=== PATIENT | female | born 1980 | race Caucasian/White ===

== ENCOUNTER 2016-11-27 12:46 | Emergency (ER) | payer OTHER ==
[~2016-11-27] VITALS: Ht 149.9 cm; Wt 104.8 kg
--- NOTE | 2016-11-27 13:12 | EKG ---
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
[2016-11-27 13:52] LABS: BILIRUBIN,URINE NEGATIVE (NEG); GLUCOSE,URINE NEGATIVE (NEG); NITRITE,URINE NEGATIVE (NEG); PROTEIN,URINE NEGATIVE (NEG-TRACE); UROBILINOGEN,URINE 0.2 mg/dL (0.2 mg/dL)
[2016-11-27 13:55] LABS: BARBITURATES NEG (NEG); BENZODIAZEPINES NEG (NEG); CANNABINOIDS NEG (NEG); COCAINE NEG (NEG); METHADONE NEG (NEG); OPIATES NEG (NEG); PHENCYCLIDINE NEG (NEG)
[2016-11-27 13:58] LABS: RBC,URINE 0 /HPF (0-2)
[2016-11-27 13:59] LABS: BACTERIA,URINE FEW /HPF (0-FEW); SQUAMOUS EPITHELIAL CELL,UR MOD /LPF
[2016-11-27 13:59] LABS: BASO # 0.1 x10^3/uL (0.0-0.2); BASO % 1 % (0-3); EOS % 2 % (0-3); HEMATOCRIT 35.6 % (36.0-47.0); HEMOGLOBIN 11.5 g/dL (12.0-15.5); LYMPH # 2.3 x10^3/uL (1.0-4.8); LYMPH % 24 % (24-48); MEAN CORPUSCULAR HEMOGLOBIN 22 pg (25-35); MEAN CORPUSCULAR HGB CONC 32 g/dL (31-37); MEAN CORPUSCULAR VOLUME 69 fL (79-100); MONO % 7 % (0-9); NEUT % 67 % (31-73); PLATELET COUNT 234 x10^3/uL (140-400); RED BLOOD COUNT 5.14 x10^6/uL (3.50-5.40); RED CELL DISTRIBUTION WIDTH 17.9 % (11.5-14.5); WHITE BLOOD COUNT 9.8 x10^3/uL (4.0-11.0)
[2016-11-27 14:00] VITALS: BP 158/83
--- NOTE | 2016-11-27 14:16 | RAD ---
EXAM: CT head without contrast. HISTORY: Hypertension, right upper extremity numbness. TECHNIQUE: Computed tomography of the head was performed without intravenous contrast. COMPARISON: None. FINDINGS: There is a fluid density mass just superior to the left cerebellar focal measuring 2.0 x 1.7 cm. This exerts significant mass effect along the left aspect of the midbrain with rightward displacement of the aqueduct and parenchymal volume loss. There is no intracranial hemorrhage. Sheth-white differentiation is preserved. The ventricles are normal in size and position. The visualized paranasal sinuses appear clear. The orbits are unremarkable. The temporal bones are unremarkable. The calvarium reveals no suspicious lesions. IMPRESSION: 1. A low signal mass just superior to left cerebellar peduncle measures 2.0 cm and exerts significant mass effect along the left aspect of the midbrain with associated midline shift and volume loss. Considerations include an arachnoid cyst, an epidermoid cyst or less likely, a solid lesion. MRI of the brain with/without contrast is recommended for further characterization if the diagnosis is not already known. These findings were called to Dr. Spicer by Janes Boothe on 11/27/2016 at 1405. *One or more of the following individualized dose reduction techniques were utilized for this examination: 1. Automated exposure control. 2. Adjustment of the mA and/or kV according to patient size. 3. Use of iterative reconstruction technique.
[2016-11-27 14:24] LABS: ANISOCYTOSIS SLIGHT; HYPOCHROMIA MOD; PLT ESTIMATE ADEQUATE (ADEQUATE); POIKILOCYTOSIS SLIGHT
[2016-11-27 14:25] LABS: MICROCYTOSIS MOD; OVALOCYTES OCC
[2016-11-27 14:31] LABS: ALBUMIN 3.4 g/dL (3.4-5.0); ALBUMIN/GLOBULIN RATIO 0.8 (1.0-1.7); CALCIUM 8.4 mg/dL (8.5-10.1); CREATININE 0.8 mg/dL (0.6-1.0); GFR 82.1; POTASSIUM 3.4 mmol/L (3.5-5.1); TOTAL BILIRUBIN 0.3 mg/dL (0.2-1.0); TOTAL PROTEIN 7.7 g/dL (6.4-8.2)
--- NOTE | 2016-11-27 14:31 | RAD ---
2 views of the Chest 11/27/2016 3:07 PM Indication: Chest pain Comparison: None Findings: No focal consolidation or infiltrate is identified. No pneumothorax or pleural effusion is seen. Heart size is normal. Bony thorax is grossly intact. Impression: No radiographic evidence of acute cardiopulmonary process.
--- NOTE | 2016-11-27 19:15 | ED.ADGEN ---
Past Medical History Past Medical History: Hypertension, Hypothyroid Additional Past Medical Histor: uncontrolled Past Surgical History: No Surgical History Alcohol Use: None Drug Use: None Adult General Chief Complaint Chief Complaint: HYPERTENSION HPI HPI Patient is a 36 year old woman, history of hypertension, hypothyroidism, who has been off medications for the past year and a half, since her last , who presents to the emergency department with a complaint of persistent numbness in the right upper extremity, with an episode of chest pain or shortness of breath, and right upper extremity and right lower extremity weakness and numbness that occurred last night. Patient denies any similar symptoms previously. She states that she did check her blood pressure at home last night when she is experiencing shortness of breath and a sharp intermittent chest pain in the center of her chest, at that time she was hypertensive, blood pressures of 170s over 100s. Patient states that she attributed her symptoms to her hypertension, states the pain and shortness of breath resolved quickly, did not recur, although the numbness in her upper extremity remained persistent. She states there was tingling which did resolve. States there may been some weakness as well. Patient states that symptoms resolved except for the numbness in her arm, patient then went to bed, states that she woke this morning with persistent numbness in the arm, prompting her to come to the ED for evaluation. Upon arrival to the emergency department, patient's blood pressure is 150s over 100s, heart rate is in the 80s, oxygen saturation is 99% in room air, respiratory rate is 18-20 and unlabored, patient is afebrile with an oral temperature is 98.2. Patient with an NIH stroke scale of 2, initially noted to have sensory changes in the circumferential right upper extremity, and concern for decreased nasolabial fold on the right. Examination is otherwise unremarkable. Review of Systems Review of Systems Constitutional: Denies fever or chills. [] Eyes: Denies change in visual acuity. [] HENT: Denies nasal congestion or sore throat. [] Respiratory: Denies cough, complaining of shortness of breath associated an episode of chest pain that was brief, sharp in nature that occurred last night, with right arm numbness, weakness. Also numbness in the right lower extremity. Cardiovascular: Denies chest pain or edema. [] GI: Denies abdominal pain, nausea, vomiting, bloody stools or diarrhea. [] : Denies dysuria. [] Musculoskeletal: Denies back pain or joint pain. [] Integument: Denies rash. [] Neurologic: Denies headache, focal weakness or sensory changes. [] Endocrine: Denies polyuria or polydipsia. [] Lymphatic: Denies swollen glands. [] Psychiatric: Denies depression or anxiety. [] Allergies Allergies Allergies Coded Allergies Type Severity Reaction Last Updated Verified codeine Allergy Severe heart racing 11/27/16 Yes acetaminophen Allergy Intermediate heart racing 11/27/16 Yes hydrocodone Allergy Intermediate heart racing 11/27/16 Yes Physical Exam Physical Exam Constitutional: Well developed, well nourished, no acute distress, non-toxic appearance. [] HENT: Normocephalic, atraumatic, bilateral external ears normal, oropharynx moist, no oral exudates, nose normal. [] Eyes: PERRLA, EOMI, conjunctiva normal, no discharge. [] Neck: Normal range of motion, no tenderness, supple, no stridor. [] Cardiovascular:Heart rate regular rhythm, no murmur, S1, S2, no rubs or gallops. Lungs & Thorax: Bilateral breath sounds clear to auscultation, no wheezing, rhonchi, rales. No chest or crepitus or tenderness. [] Abdomen: Bowel sounds normal, soft, no tenderness, no masses, no pulsatile masses. [] Skin: Warm, dry, no erythema, no rash. [] Back: No tenderness, no CVA tenderness. [] Extremities: No tenderness, no cyanosis, no clubbing, ROM intact, no edema. Negative Homans sign. 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 Psychologic: Affect normal, judgement normal, mood normal. [] Current Patient Data Vital Signs Vital Signs Date Time Temp Pulse Resp B/P (MAP) Pulse Ox O2 Delivery O2 Flow Rate FiO2 11/27/16 13:02 98.2 86 20 172/104 (126) 99 Room Air 98.2 Lab Values Laboratory Tests Test 11/27/16 13:35 11/27/16 13:38 11/27/16 13:45 POC Urine HCG, Qualitative Hcg negative (Negative) Urine Collection Type Unknown Urine Color Yellow Urine Clarity Clear Urine pH 6.0 Urine Specific [place] <=1.005 Urine Protein Negative mg/dL (NEG-TRACE) Urine Glucose (UA) Negative mg/dL (NEG) Urine Ketones (Stick) Negative mg/dL (NEG) Urine Blood Negative (NEG) Urine Nitrite Negative (NEG) Urine Bilirubin Negative (NEG) Urine Urobilinogen Dipstick 0.2 mg/dL (0.2 mg/dL) Urine Leukocyte Esterase Small (NEG) Urine RBC 0 /HPF (0-2) Urine WBC 1-4 /HPF (0-4) Urine Squamous Epithelial Cells Mod /LPF Urine Bacteria Few /HPF (0-FEW) Urine Opiates Screen Neg (NEG) Urine Methadone Screen Neg (NEG) Urine Barbiturates Neg (NEG) Urine Phencyclidine Screen Neg (NEG) Urine Amphetamine/Methamphetamine Neg (NEG) Urine Benzodiazepines Screen Neg (NEG) Urine Cocaine Screen Neg (NEG) Urine Cannabinoids Screen Neg (NEG) Urine Ethyl Alcohol Neg (NEG) White Blood Count 9.8 x10^3/uL (4.0-11.0) Red Blood Count 5.14 x10^6/uL (3.50-5.40) Hemoglobin 11.5 g/dL (12.0-15.5) L Hematocrit 35.6 % (36.0-47.0) L Mean Corpuscular Volume 69 fL (79-100) L Mean Corpuscular Hemoglobin 22 pg (25-35) L Mean Corpuscular Hemoglobin Concent 32 g/dL (31-37) Red Cell Distribution Width 17.9 % (11.5-14.5) H Platelet Count 234 x10^3/uL (140-400) Neutrophils (%) (Auto) 67 % (31-73) Lymphocytes (%) (Auto) 24 % (24-48) Monocytes (%) (Auto) 7 % (0-9) Eosinophils (%) (Auto) 2 % (0-3) Basophils (%) (Auto) 1 % (0-3) Neutrophils # (Auto) 6.5 x10^3uL (1.8-7.7) Lymphocytes # (Auto) 2.3 x10^3/uL (1.0-4.8) Monocytes # (Auto) 0.7 x10^3/uL (0.0-1.1) Eosinophils # (Auto) 0.2 x10^3/uL (0.0-0.7) Basophils # (Auto) 0.1 x10^3/uL (0.0-0.2) Platelet Estimate Adequate (ADEQUATE) Hypochromasia Mod Poikilocytosis Slight Anisocytosis Slight Microcytosis Mod Ovalocytes Occ Sodium Level 140 mmol/L (136-145) Potassium Level 3.4 mmol/L (3.5-5.1) L Chloride Level 104 mmol/L (98-107) Carbon Dioxide Level 30 mmol/L (21-32) Anion Gap 6 (6-14) Blood Urea Nitrogen 12 mg/dL (7-20) Creatinine 0.8 mg/dL (0.6-1.0) Estimated GFR (Cockcroft-Gault) 82.1 BUN/Creatinine Ratio 15 (6-20) Glucose Level 106 mg/dL (70-99) H Calcium Level 8.4 mg/dL (8.5-10.1) L Total Bilirubin 0.3 mg/dL (0.2-1.0) Aspartate Amino Transferase (AST) 21 U/L (15-37) Alanine Aminotransferase (ALT) 31 U/L (14-59) Alkaline Phosphatase 74 U/L (46-116) Troponin I Quantitative < 0.017 ng/mL (0.000-0.055) SH-Afg-R-Type Natriuretic Peptide 62 pg/mL (0-124) Total Protein 7.7 g/dL (6.4-8.2) Albumin 3.4 g/dL (3.4-5.0) Albumin/Globulin Ratio 0.8 (1.0-1.7) L Lipase 309 U/L (73-393) Laboratory Tests 11/27/16 13:45 Laboratory Tests 11/27/16 13:45 EKG EKG EC: Sinus rhythm, heart rate 83 beats/minute, upright axis, QTC of 469, MA 164, QRS of 94, patient with T-wave inversions noted in lead 3, with some flattening in aVF, no ST depressions or elevations, abnormal ECG, does not meet STEMI criteria.[] Radiology/Procedures Radiology/Procedures [][facility] [address] [place] [address] IMAGING REPORT Signed PATIENT: BERHANE ADAM ACCOUNT: [id number] : 1980 LOCATION: ER AGE: 36 SEX: F EXAM STATUS: REG ER ORD. PHYSICIAN: CHAPITO FLORES DO REASON: CP PROCEDURE: CHEST PA & LATERAL 2 views of the Chest 11/27/2016 3:07 PM Indication: Chest pain Comparison: None Findings: No focal consolidation or infiltrate is identified. No pneumothorax or pleural effusion is seen. Heart size is normal. Bony thorax is grossly intact. Impression: No radiographic evidence of acute cardiopulmonary process. DICTATED and SIGNED BY: ANNE-MARIE TABOR MD DATE: 11/27/161424 CC: CHAPITO FLORES DO; NO PCP ~ Impressions: [facility] [address] [place] [address] IMAGING REPORT Signed PATIENT: BERHANE ADAM ACCOUNT: [id number] : 1980 LOCATION: ER AGE: 36 SEX: F EXAM STATUS: REG ER ORD. PHYSICIAN: CHAPITO FLORES DO REASON: HTN/ R arm numbness PROCEDURE: CT HEAD WO CONTRAST EXAM: CT head without contrast. HISTORY: Hypertension, right upper extremity numbness. TECHNIQUE: Computed tomography of the head was performed without intravenous contrast. COMPARISON: None. FINDINGS: There is a fluid density mass just superior to the left cerebellar focal measuring 2.0 x 1.7 cm. This exerts significant mass effect along the left aspect of the midbrain with rightward displacement of the aqueduct and parenchymal volume loss. There is no intracranial hemorrhage. Sheth-white differentiation is preserved. The ventricles are normal in size and position. The visualized paranasal sinuses appear clear. The orbits are unremarkable. The temporal bones are unremarkable. The calvarium reveals no suspicious lesions. IMPRESSION: 1. A low signal mass just superior to left cerebellar peduncle measures 2.0 cm and exerts significant mass effect along the left aspect of the midbrain with associated midline shift and volume loss. Considerations include an arachnoid cyst, an epidermoid cyst or less likely, a solid lesion. MRI of the brain with/without contrast is recommended for further characterization if the diagnosis is not already known. These findings were called to Dr. Flores by Janes Boothe on 11/27/2016 at 1405. *One or more of the following individualized dose reduction techniques were utilized for this examination: 1. Automated exposure control. 2. Adjustment of the mA and/or kV according to patient size. 3. Use of iterative reconstruction technique. DICTATED and SIGNED BY: DANAE BOOTHE MD DATE: 11/27/16 6489 CC: CHAPITO FLORES DO; NO PCP ~ Course & Med Decision Making Course & Med Decision Making Pertinent Labs and Imaging studies reviewed. (See chart for details) NIH stroke scale upon my evaluation is 1, patient with no evidence of decreased nasolabial fold, noted to have continued circumferential numbness in the right upper extremity. Patient does not meet criteria for code stroke, therefore CT of the brain without contrast was obtained in the ED per protocol, along with ECG, chest x-ray, laboratory studies. ECG reveals T-wave inversions in lead 3, no other acutely concerning findings identified, patient with unremarkable chest x-ray, initial laboratory studies with a negative troponin, I was contacted by the radiologist due to the CT of the head revealing a low signal mass just superior to left cerebellar peduncle that measures 2.0 cm With mass effect on the left lateral aspect of the mid brain, with associated midline shift and volume loss. Informed that considerations include an arachnoid cyst, an epidermoid cyst or less likely, a solid lesion. I did discuss with patient, she has no history of known brain abnormalities. I did discuss findings as above with Dr. García of neurosurgery, he reviewed patient's imaging and course, based on unclear CT findings, and potential need for intervention, he recommended the patient be transferred to [facility], for higher level of care and monitoring than can be provided at [facility]. States transfer and MRI further elucidation of findings would be in patient's best interest. I discussed this with patient, she is agreeable for transfer. I spoke to the triage nurse via the [facility] transfer line, and with Dr. Caron Drake of neurosurgery at . Patient remains stable in sinus rhythm, heart rate in the 80s, repeat blood pressures are 130s over 80s without intervention in the emergency department, no findings aside from numbness in the right upper extremity as stated. Imaging was reviewed by Dr. Drake, patient was accepted to her service as a full admission for transfer to the ICU at [facility]. I did review findings with patient's family and patient at bedside patient's request, consent transfer patient work was completed. Patient remained stable, comfortable, without change in condition, awaiting transfer to ICU. Dragon Disclaimer Dragon Disclaimer This electronic medical record was generated, in whole or in part, using a voice recognition dictation system. Departure Impression: Primary Impression: Brain mass Additional Impression: Right arm numbness Disposition: 05 TRANSFER OTHER Condition: STABLE Problem Qualifiers CHAPITO FLORES DO Nov 27, 2016 19:15
== END 2016-11-27 19:30 | disposition short-term general hospital (02) ==
LOC: ER 12:46
DX: R20.0 Anesthesia of skin (principal); G93.89 Other specified disorders of brain; E03.9 Hypothyroidism, unspecified; I10 Essential (primary) hypertension; Z88.5 Allergy status to narcotic agent; Z88.6 Allergy status to analgesic agent
CPT/HCPCS: 36415; 70450; 71020; 80053; 80307; 81001; 81025; 83690; 83880; 84484; 85025; 93005; 99285-25; G0479

== ENCOUNTER 2016-12-19 16:25 | Emergency (ER) | payer OTHER ==
[~2016-12-19] VITALS: Ht 149.9 cm; Wt 100.2 kg
[2016-12-19] MEDS ORDERED: ONDANSETRON PF 4 MG/2 ML VIAL. IV ONE (17:00)
[2016-12-19] MEDS ORDERED: IV NORMAL SALINE 1000ML BAG 1,000 ML IV ONE (17:00)
--- NOTE | 2016-12-19 17:00 | PHYS DOC ---
Past Medical History Past Medical History: Hypertension, Hypothyroid Additional Past Medical Histor: uncontrolled Past Surgical History: Other Additional Past Surgical Histo: tumor removal - brain Alcohol Use: None Drug Use: None Adult General Chief Complaint Chief Complaint: NAUSEA/VOMITING/DIARRHA HPI HPI Patient is a 36 year old female presents to the emergency department stating that she was seen here on November 25 for brain tumor she states that she was transferred to [facility] and had a tumor removed on 12/04. Patient states that she's been at home with rehabilitation facility services. Patient states that she has had some vomiting today with one episode lasting approximately 20 minutes. Patient states that she has had elevated blood pressure with headache that just started prior to arrival. Patient states that she has blurred vision but this is nothing different than what she has had since the surgery. Patient continues to state that when she did have her emesis and it lasted for approximately 20 minutes it was dark brown to darkish color. Patient denies any history of ulcers or gastric issues. Patient does state that she's had some slight shortness of of breath. Patient denies any cough or congestion. Patient also denies fever, or chills. Review of Systems Review of Systems Constitutional: Denies fever or chills [] Eyes: Denies change in visual acuity, redness, or eye pain [] HENT: Denies nasal congestion or sore throat [] Respiratory: Denies cough complaint of shortness of breath [] Cardiovascular: No additional information not addressed in HPI [] GI: Denies abdominal pain, bloody stools or diarrhea. C/o Nausea vomiting : Denies dysuria or hematuria [] Musculoskeletal: Denies back pain or joint pain [] Integument: Denies rash or skin lesions [] Neurologic: headache, denies focal weakness or sensory changes [] Endocrine: Denies polyuria or polydipsia [] All other systems were reviewed and found to be within normal limits, except as documented in this note. Current Medications Current Medications Current Medications Medications (Trade) Dose Ordered Sig/Landry Start Time Stop Time Status Last Admin Dose Admin Ketorolac Tromethamine (Toradol) 30 mg 1X ONCE 12/19/16 18:45 12/19/16 18:47 DC 12/19/16 18:51 30 MG Ondansetron HCl (Zofran) 4 mg 1X ONCE 12/19/16 17:00 12/19/16 17:01 DC 12/19/16 17:43 4 MG Pantoprazole Sodium (Protonix Vial) 40 mg 1X ONCE 12/19/16 17:15 12/19/16 17:16 DC 12/19/16 17:43 40 MG Sodium Chloride 1,000 ml @ 1,000 mls/hr 1X ONCE 12/19/16 17:00 12/19/16 17:59 DC 12/19/16 17:42 1,000 MLS/HR Allergies Allergies Allergies Coded Allergies Type Severity Reaction Last Updated Verified codeine Allergy Severe heart racing 11/27/16 Yes acetaminophen Allergy Intermediate heart racing 11/27/16 Yes hydrocodone Allergy Intermediate heart racing 11/27/16 Yes Physical Exam Physical Exam Constitutional: Well developed, well nourished, no acute distress, non-toxic appearance. [] HENT: Normocephalic, atraumatic, bilateral external ears normal, oropharynx moist, no oral exudates, nose normal. Bilateral Tympanic membrane appears to be normal. Throat slightly red. No anterior cervical adenopathy noted. Eyes: PERRLA, EOMI, conjunctiva normal, no discharge. [] Neck: Normal range of motion, no tenderness, supple, no stridor. [] Cardiovascular:Heart rate regular rhythm, no murmur [] Lungs & Thorax: Bilateral breath sounds clear to auscultation [] Abdomen: Bowel sounds hypoactive, soft, no tenderness, no masses, no pulsatile masses. [] Skin: Warm, dry, no erythema, no rash. [] Back: No tenderness Extremities: No tenderness, no cyanosis, no clubbing, ROM intact, no edema. [] Neurologic: Alert and oriented X 3, normal motor function, normal sensory function, no focal deficits noted. [] Psychologic: Affect normal, judgement normal, mood normal. [] Current Patient Data Vital Signs Vital Signs Date Time Temp Pulse Resp B/P (MAP) Pulse Ox O2 Delivery O2 Flow Rate FiO2 12/19/16 16:36 98.3 111 20 136/81 (99) 97 Room Air 98.3 Lab Values Laboratory Tests Test 12/19/16 17:05 12/19/16 17:11 12/19/16 17:20 12/19/16 18:55 Urine Color Yellow Urine Clarity Clear Urine pH 7.5 Urine Specific [place] 1.015 Urine Protein Negative mg/dL (NEG-TRACE) Urine Glucose (UA) Negative mg/dL (NEG) Urine Ketones (Stick) Negative mg/dL (NEG) Urine Blood Negative (NEG) Urine Nitrite Negative (NEG) Urine Bilirubin Negative (NEG) Urine Urobilinogen Dipstick 0.2 mg/dL (0.2 mg/dL) Urine Leukocyte Esterase Trace (NEG) Urine RBC 0 /HPF (0-2) Urine WBC Occ /HPF (0-4) Urine Squamous Epithelial Cells Occ /LPF Urine Amorphous Sediment Present /HPF Urine Bacteria 0 /HPF (0-FEW) POC Urine HCG, Qualitative Hcg negative (Negative) White Blood Count 17.8 x10^3/uL (4.0-11.0) H Red Blood Count 5.62 x10^6/uL (3.50-5.40) H Hemoglobin 12.6 g/dL (12.0-15.5) Hematocrit 40.0 % (36.0-47.0) Mean Corpuscular Volume 71 fL (79-100) L Mean Corpuscular Hemoglobin 23 pg (25-35) L Mean Corpuscular Hemoglobin Concent 32 g/dL (31-37) Red Cell Distribution Width 20.9 % (11.5-14.5) H Platelet Count 200 x10^3/uL (140-400) Neutrophils (%) (Auto) 87 % (31-73) H Lymphocytes (%) (Auto) 6 % (24-48) L Monocytes (%) (Auto) 5 % (0-9) Eosinophils (%) (Auto) 2 % (0-3) Basophils (%) (Auto) 1 % (0-3) Neutrophils # (Auto) 15.4 x10^3uL (1.8-7.7) H Lymphocytes # (Auto) 1.1 x10^3/uL (1.0-4.8) Monocytes # (Auto) 0.9 x10^3/uL (0.0-1.1) Eosinophils # (Auto) 0.3 x10^3/uL (0.0-0.7) Basophils # (Auto) 0.1 x10^3/uL (0.0-0.2) Platelet Estimate Pending Sodium Level 138 mmol/L (136-145) Potassium Level 3.7 mmol/L (3.5-5.1) Chloride Level 102 mmol/L (98-107) Carbon Dioxide Level 30 mmol/L (21-32) Anion Gap 6 (6-14) Blood Urea Nitrogen 14 mg/dL (7-20) Creatinine 0.7 mg/dL (0.6-1.0) Estimated GFR (Cockcroft-Gault) 95.8 BUN/Creatinine Ratio 20 (6-20) Glucose Level 87 mg/dL (70-99) Calcium Level 8.2 mg/dL (8.5-10.1) L Total Bilirubin 0.5 mg/dL (0.2-1.0) Aspartate Amino Transferase (AST) 16 U/L (15-37) Alanine Aminotransferase (ALT) 32 U/L (14-59) Alkaline Phosphatase 77 U/L (46-116) Total Protein 7.1 g/dL (6.4-8.2) Albumin 3.0 g/dL (3.4-5.0) L Albumin/Globulin Ratio 0.7 (1.0-1.7) L Influenza Type A Antigen Negative (NEGATIVE) Influenza Type B Antigen Negative (NEGATIVE) Laboratory Tests 12/19/16 17:20 Laboratory Tests 12/19/16 17:20 EKG EKG [] Radiology/Procedures Radiology/Procedures [][facility] [address] [place] [address] IMAGING REPORT Signed PATIENT: BERHANE ADAM ACCOUNT: [id number] : 1980 LOCATION: ER AGE: 36 SEX: F EXAM STATUS: REG ER ORD. PHYSICIAN: MELISSA RUBALCAVA APRN REASON: c/o head elevated BP nausea and vomting PROCEDURE: CT HEAD WO CONTRAST CT scan of the head without contrast 12/19/2016 Clinical History: Dizziness. History of recent brain surgery for benign brain tumor. Technique: Unenhanced, contiguous, 5 mm axial sections were obtained through the head. One or more of the following individualized dose reduction techniques were utilized for this study: 1. Automated exposure control. 2. Adjustment of the mA and/or kV according to patient size. 3. Use of iterative reconstruction technique. Findings: Comparison study is dated 11/27/2016. The patient is post left temporal/parietal craniotomy. A small subdural fluid collection (measuring 3 mm in thickness) and small collections of air are seen within the subdural space deep to the craniotomy site consistent with the patient's history of recent surgery. There is no associated mass effect. The ventricles are within normal limits in size and configuration. No acute parenchymal abnormality is seen. IMPRESSION: Postsurgical changes are seen as outlined above. No acute parenchymal abnormality is seen. Electronically signed by: Leighton Reddy MD (12/19/2016 5:51 PM) [facility] DICTATED and SIGNED BY: LEIGHTON REDDY MD DATE: 12/19/16 1743 CC: MELISSA RUBALCAVA APRN; NO PCP; NON,STAFF ~ Course & Med Decision Making Course & Med Decision Making Pertinent Labs and Imaging studies reviewed. (See chart for details) [address] Gonzáles in regards to the patients elevated WBC, and CT scan. Dr Gonzáles in to evaluate patient. Dr Gonzáles states her temp is 104 currently and believes her throat to red with exudates. He also noted anterior cervical adenoid tenderness. Rapid strep and influenza swab ordered. Rapid strep negative, influenza swab was negative. Dr. Gonzáles is aware of the CT scan as well as the elevation in white count. His recommendations is to place her on antibiotic and have her follow up with her primary care physician. Patient was provided with test results. She was recommended to follow up with her primary care physician in the next 3-5 days per Leeroy be placed on amoxicillin. She was recommended to return to the [facility] if she develops any increased headache any increased and blurred vision increased nausea or vomiting. Patient agrees with discharge instructions, treatment regimens and follow-up recommendations. Signs symptoms return back to emergency department been provided. Dragon Disclaimer Dragon Disclaimer This electronic medical record was generated, in whole or in part, using a voice recognition dictation system. Departure Departure Impression: Primary Impression: Pharyngitis Disposition: 01 HOME, SELF-CARE Condition: STABLE Referrals: NO PCP (PCP) Patient Instructions: Viral and Bacterial Pharyngitis, [id number] Additional Instructions: Activity as tolerated. Medications as prescribed. Encourage plenty of fluids. Tylenol for fever chills or generalized body aches and discomfort. Follow-up to primary care physician X3 to 5 days. Return to if you develop any increased headaches blurred vision any increased nausea vomiting. Return back to the emergency room prior signs symptoms become worse. Scripts Amoxicillin (AMOXICILLIN) 500 Mg Capsule 1 CAP PO TID, #30 CAP Prov: MELISSA RUBALCAVA APRN 12/19/16 Problem Qualifiers Primary Impression: Pharyngitis Pharyngitis/tonsillitis etiology: unspecified etiology Qualified Codes: J02.9 - Acute pharyngitis, unspecified MELISSA RUBALCAVA [employer]ATOR Dec 19, 2016 17:00
[2016-12-19] MEDS ORDERED: PANTOPRAZOLE IV PUSH 40 MG VIAL. IVP ONE (17:15)
--- NOTE | 2016-12-19 17:24 | EKG ---
[facility] [address] [place] [address] Test Date: 2016-12-19 Test Time: 17:22:27 Pat Name: BERHANE ADAM Department: Room: Gender: F Taste Tester: : 1980 Requested By: MELISSA RUBALCAVA Order Number: [id number] Reading MD: Toby Montoya MD Measurements Intervals Leigh Rate: 112 P: -4 NH: 152 QRS: 10 QRSD: 86 T: 23 QT: 372 QTc: 509 Interpretive Statements SINUS TACHYCARDIA NON-SPECIFIC ST/T CHANGES Electronically Signed On 12-22-2016 10:58:51 [employer] by Toby Montoya MD
[2016-12-19 17:31] LABS: BASO # 0.1 x10^3/uL (0.0-0.2); BASO % 1 % (0-3); EOS % 2 % (0-3); HEMOGLOBIN 12.6 g/dL (12.0-15.5); LYMPH # 1.1 x10^3/uL (1.0-4.8); LYMPH % 6 % (24-48); MEAN CORPUSCULAR HEMOGLOBIN 23 pg (25-35); MEAN CORPUSCULAR HGB CONC 32 g/dL (31-37); MEAN CORPUSCULAR VOLUME 71 fL (79-100); MONO % 5 % (0-9); NEUT % 87 % (31-73); PLATELET COUNT 200 x10^3/uL (140-400); RED BLOOD COUNT 5.62 x10^6/uL (3.50-5.40); RED CELL DISTRIBUTION WIDTH 20.9 % (11.5-14.5); WHITE BLOOD COUNT 17.8 x10^3/uL (4.0-11.0)
[2016-12-19 17:47] LABS: CALCIUM 8.2 mg/dL (8.5-10.1); CREATININE 0.7 mg/dL (0.6-1.0); GFR 95.8; POTASSIUM 3.7 mmol/L (3.5-5.1)
[2016-12-19 17:52] LABS: ALBUMIN/GLOBULIN RATIO 0.7 (1.0-1.7); TOTAL BILIRUBIN 0.5 mg/dL (0.2-1.0); TOTAL PROTEIN 7.1 g/dL (6.4-8.2)
[2016-12-19 17:53] LABS: BILIRUBIN,URINE NEGATIVE (NEG); GLUCOSE,URINE NEGATIVE (NEG); NITRITE,URINE NEGATIVE (NEG); PH,URINE 7.5; PROTEIN,URINE NEGATIVE (NEG-TRACE); UROBILINOGEN,URINE 0.2 mg/dL (0.2 mg/dL)
--- NOTE | 2016-12-19 17:55 | RAD ---
CT scan of the head without contrast 12/19/2016 Clinical History: Dizziness. History of recent brain surgery for benign brain tumor. Technique: Unenhanced, contiguous, 5 mm axial sections were obtained through the head. One or more of the following individualized dose reduction techniques were utilized for this study: 1. Automated exposure control. 2. Adjustment of the mA and/or kV according to patient size. 3. Use of iterative reconstruction technique. Findings: Comparison study is dated 11/27/2016. The patient is post left temporal/parietal craniotomy. A small subdural fluid collection (measuring 3 mm in thickness) and small collections of air are seen within the subdural space deep to the craniotomy site consistent with the patient's history of recent surgery. There is no associated mass effect. The ventricles are within normal limits in size and configuration. No acute parenchymal abnormality is seen. IMPRESSION: Postsurgical changes are seen as outlined above. No acute parenchymal abnormality is seen. Electronically signed by: Leighton Reddy MD (12/19/2016 5:51 PM) [facility]
[2016-12-19 18:14] LABS: BACTERIA,URINE 0 /HPF (0-FEW); RBC,URINE 0 /HPF (0-2); SQUAMOUS EPITHELIAL CELL,UR OCC /LPF; WBC,URINE OCC /HPF (0-4)
[2016-12-19] MEDS ORDERED: KETOROLAC 30 MG/ML INJ. IV ONE (18:45)
[2016-12-19 19:18] LABS: OBC FLU VALID
[2016-12-19] MEDS ORDERED: AMOX500C PO (19:43)
[2016-12-19 19:48] LABS: % EOS 2 % (0-5); OVALOCYTES OCC; PLT ESTIMATE ADEQUATE (ADEQUATE); POLYCHROMASIA MOD; STOMATOCYTES OCC
[2016-12-19 19:51] VITALS: BP 129/86
--- NOTE | 2016-12-20 08:05 | RAD ---
EXAM: Chest, single view. HISTORY: Emesis. COMPARISON: None. FINDINGS: A frontal view of the chest obtained. There is no infiltrate, effusion or pneumothorax. The heart is normal in size. IMPRESSION: No acute pulmonary finding.
[2016-12-20 09:49] LABS: NEGATIVE OBC STREP NEG; POSITIVE OBC STREP POS
== END 2016-12-19 19:58 | disposition home or self-care (01) ==
LOC: ER 16:25
DX: J02.9 Acute pharyngitis, unspecified (principal); R11.2 Nausea with vomiting, unspecified; R51 Headache; H53.8 Other visual disturbances; E03.9 Hypothyroidism, unspecified; I10 Essential (primary) hypertension; Z88.5 Allergy status to narcotic agent; Z88.6 Allergy status to analgesic agent; Z86.011 Personal history of benign neoplasm of the brain
CPT/HCPCS: 36415; 70450; 71010; 80053; 81001; 81025; 85007; 85025; 87070; 87086; 87804; 87880; 93005; 96361; 96374; 96375; 99285; C9113; J1885; J2405; J7030

== ENCOUNTER → 2017-04-03 | Outpatient (CLI) | payer OTHER ==
[2017-04-03] MEDS: GADOBUTROL 10 MMOL/10 ML VIAL IV ×2 (15:57)
== END | disposition home or self-care (01) ==
LOC: KCIC MRI 14:55
DX: G43.909 Migraine, unspecified, not intractable, without status migrainosus (principal)
CPT/HCPCS: 70553; A9585

== ENCOUNTER 2019-01-22 09:31 | Emergency (ER) | payer MEDICAID, OTHER ==
[~2019-01-22] VITALS: Ht 149.9 cm; Wt 122.5 kg
[~2019-01-22 09:31] MED LIST: AMLO5TAB10 PO; AMOX500C PO; IBUP-1007 PO; LEVE750T41 PO; LEVO50TA5 PO; METH-38 PO
[2019-01-22] MEDS ORDERED: IV NORMAL SALINE 1000ML BAG 1,000 ML IV SCH (11:06)
[2019-01-22] MEDS ORDERED: ONDANSETRON PF 4 MG/2 ML VIAL. IV ONE (11:15)
[2019-01-22] MEDS ORDERED: MORPHINE SULFATE 4 MG/ML VIAL. IV/SQ PRN (11:15)
[2019-01-22 11:24] LABS: BASO # 0.1 x10^3/uL (0.0-0.2); BASO % 1 % (0-3); EOS # 0.2 x10^3/uL (0.0-0.7); EOS % 2 % (0-3); HEMATOCRIT 44.6 % (36.0-47.0); HEMOGLOBIN 14.8 g/dL (12.0-15.5); LYMPH # 1.5 x10^3/uL (1.0-4.8); LYMPH % 15 % (24-48); MEAN CORPUSCULAR HEMOGLOBIN 27 pg (25-35); MEAN CORPUSCULAR HGB CONC 33 g/dL (31-37); MEAN CORPUSCULAR VOLUME 81 fL (79-100); MONO # 0.7 x10^3/uL (0.0-1.1); MONO % 7 % (0-9); NEUT # 7.9 x10^3/uL (1.8-7.7); NEUT % 76 % (31-73); PLATELET COUNT 248 x10^3/uL (140-400); RED BLOOD COUNT 5.53 x10^6/uL (3.50-5.40); RED CELL DISTRIBUTION WIDTH 16.4 % (11.5-14.5); WHITE BLOOD COUNT 10.4 x10^3/uL (4.0-11.0)
[2019-01-22 11:33] LABS: CREATININE 1.1 mg/dL (0.6-1.0); GFR 56.2; POTASSIUM 3.3 mmol/L (3.5-5.1)
[2019-01-22 11:39] LABS: ALBUMIN 3.9 g/dL (3.4-5.0); ALBUMIN/GLOBULIN RATIO 0.8 (1.0-1.7); TOTAL BILIRUBIN 0.4 mg/dL (0.2-1.0); TOTAL PROTEIN 8.9 g/dL (6.4-8.2)
[2019-01-22 11:39] LABS: BILIRUBIN,URINE NEGATIVE (NEG); CLARITY,URINE CLOUDY; COLOR,URINE AMBER; NITRITE,URINE NEGATIVE (NEG); PROTEIN,URINE 100 mg/dL (NEG-TRACE); UROBILINOGEN,URINE 0.2 mg/dL (0.2 mg/dL)
[2019-01-22 11:54] LABS: BACTERIA,URINE 0 /HPF (0-FEW); RBC,URINE 20-40 /HPF (0-2); SQUAMOUS EPITHELIAL CELL,UR MOD /LPF; WBC,URINE OCC /HPF (0-4)
[2019-01-22] MEDS ORDERED: IOHEXOL 300 MG/ML 100ML VIAL. IV ONE (12:15)
[2019-01-22] MEDS ORDERED: CONTRAST GIVEN. MC PRN (12:30)
--- NOTE | 2019-01-22 12:49 | RAD ---
CT abdomen pelvis with contrast dated 01/22/2019. No comparison available. Clinical data indication: Right lower quadrant pain. TECHNIQUE: Contiguous axial imaging of the abdomen and pelvis performed after the administration of 60 cc Omnipaque 300. One or more of the following individualized dose reduction techniques were utilized for this examination: 1. Automated exposure control 2. Adjustment of the mA and/or kV according to patient size 3. Use of iterative reconstruction technique. FINDINGS: Limited images of lung bases are clear. Heart size mildly enlarged. No pleural or pericardial effusion. Liver is of diffuse low density compatible with fatty infiltration. No apparent mass. Biliary tree normal in caliber. Gallbladder unremarkable. Spleen is normal in size. Pancreas, adrenal glands are unremarkable. There is a 2 mm calcific stone at the right UVJ with mild proximal hydroureter and hydronephrosis. Mild inflammatory stranding in the perinephric and periureteral fat. No definite calcific stone within the substance of either kidney, although evaluation is somewhat limited due to the presence of contrast material. No left ureteral stone or left hydronephrosis. Unopacified GI tract normal in caliber and contour. No focal bowel wall thickening. The appendix is normal in caliber. No ascites or lymphadenopathy. There are nonpathologically enlarged mesenteric lymph nodes. Abdominal aorta is normal in caliber. Images of pelvis a nondistended urinary bladder. Intrauterine contraceptive device appears to be adequately positioned within the endometrial canal. No significant free fluid or pelvic lymphadenopathy. Bone windows show no acute findings. Mild multilevel spondylosis. IMPRESSION: 1. There is a 2 mm calcific stone at the right UVJ with mild obstructive uropathy. 2. Mild fatty infiltration of the liver. Electronically signed by: Andres Castro MD (01/22/2019 12:46 PM) [facility]
[2019-01-22] MEDS ORDERED: ONDA4TAB12 PO (13:35)
[2019-01-22] MEDS ORDERED: OXYC1TAB19 PO (13:35)
[2019-01-22] MEDS ORDERED: KETO10TA PO (13:35)
--- NOTE | 2019-01-22 13:36 | PHYS DOC ---
Past Medical History Past Medical History: Hypertension, Hypothyroid, Migraines, Other Additional Past Medical Histor: BRAIN STEM TUMOR DIAGNOSED 2016 Past Surgical History: Other Additional Past Surgical Histo: tumor removal - brain Alcohol Use: None Drug Use: None Adult General Chief Complaint Chief Complaint: ABDOMINAL PAIN HPI HPI Patient is a 38-year-old female who presents with complaint of right flank pain that started last night. Patient states that pain is gotten worse today and currently she rates pain at a 10 out of 10. She states that she has been having numerous episodes of vomiting and has been diaphoretic associated with pain 2. She states that she has had decreased appetite since pain started.[] Review of Systems Review of Systems Constitutional: Denies fever or chills [] Respiratory: Denies cough or shortness of breath [] Cardiovascular: No additional information not addressed in HPI [] GI: Positive right-sided abdominal pain with nausea and vomiting. Denies diarrhea [] Musculoskeletal: Complains of right-sided back pain [] Neurologic: Denies headache, focal weakness or sensory changes [] All other systems were reviewed and found to be within normal limits, except as documented in this note. Current Medications Current Medications Current Medications Medications (Trade) Dose Ordered Sig/Landry Start Time Stop Time Status Last Admin Dose Admin Info (CONTRAST GIVEN -- Rx MONITORING) 1 each PRN DAILY PRN 01/22/19 12:30 01/24/19 12:29 Iohexol (Omnipaque 300 Mg/ml) 75 ml 1X ONCE 01/22/19 12:15 01/22/19 12:16 DC 01/22/19 12:20 75 ML Morphine Sulfate (Morphine Sulfate) 4 mg PRN Q15MIN PRN 01/22/19 11:15 01/23/19 11:14 01/22/19 11:30 4 MG Ondansetron HCl (Zofran) 4 mg 1X ONCE 01/22/19 11:15 01/22/19 11:16 DC 01/22/19 11:30 4 MG Sodium Chloride 1,000 ml @ 1,000 mls/hr Q1H 01/22/19 11:06 01/22/19 12:05 DC 01/22/19 11:30 1,000 MLS/HR Allergies Allergies Allergies Coded Allergies Type Severity Reaction Last Updated Verified codeine Allergy Severe heart racing 11/27/16 Yes acetaminophen Allergy Intermediate heart racing 11/27/16 Yes hydrocodone Allergy Intermediate heart racing 11/27/16 Yes Physical Exam Physical Exam Constitutional: Well developed, well nourished, no acute distress, non-toxic appearance. [] HENT: Normocephalic, atraumatic, bilateral external ears normal, oropharynx moist, no oral exudates, nose normal. [] Eyes: PERRLA, EOMI, conjunctiva normal, no discharge. [] Neck: Normal range of motion, no tenderness, supple. [] Cardiovascular: Regular rate and rhythm[] Lungs & Thorax: Bilateral breath sounds clear to auscultation [] Abdomen: Bowel sounds normal, soft, with moderate right lower quadrant tenderness. [] Skin: Warm, dry, no erythema, no rash. [] Extremities: No tenderness, no cyanosis, no clubbing, ROM intact, no edema. [] Neurologic: Alert and oriented X 3, no focal deficits noted. [] Current Patient Data Vital Signs Vital Signs Date Time Temp Pulse Resp B/P (MAP) Pulse Ox O2 Delivery O2 Flow Rate FiO2 01/22/19 12:00 20 95 Room Air 01/22/19 10:55 97.6 98 174/97 (122) 97.6 Lab Values Laboratory Tests Test 01/22/19 11:17 01/22/19 11:26 White Blood Count 10.4 x10^3/uL (4.0-11.0) Red Blood Count 5.53 x10^6/uL (3.50-5.40) H Hemoglobin 14.8 g/dL (12.0-15.5) Hematocrit 44.6 % (36.0-47.0) Mean Corpuscular Volume 81 fL (79-100) Mean Corpuscular Hemoglobin 27 pg (25-35) Mean Corpuscular Hemoglobin Concent 33 g/dL (31-37) Red Cell Distribution Width 16.4 % (11.5-14.5) H Platelet Count 248 x10^3/uL (140-400) Neutrophils (%) (Auto) 76 % (31-73) H Lymphocytes (%) (Auto) 15 % (24-48) L Monocytes (%) (Auto) 7 % (0-9) Eosinophils (%) (Auto) 2 % (0-3) Basophils (%) (Auto) 1 % (0-3) Neutrophils # (Auto) 7.9 x10^3/uL (1.8-7.7) H Lymphocytes # (Auto) 1.5 x10^3/uL (1.0-4.8) Monocytes # (Auto) 0.7 x10^3/uL (0.0-1.1) Eosinophils # (Auto) 0.2 x10^3/uL (0.0-0.7) Basophils # (Auto) 0.1 x10^3/uL (0.0-0.2) Sodium Level 139 mmol/L (136-145) Potassium Level 3.3 mmol/L (3.5-5.1) L Chloride Level 101 mmol/L (98-107) Carbon Dioxide Level 27 mmol/L (21-32) Anion Gap 11 (6-14) Blood Urea Nitrogen 13 mg/dL (7-20) Creatinine 1.1 mg/dL (0.6-1.0) H Estimated GFR (Cockcroft-Gault) 56.2 BUN/Creatinine Ratio 12 (6-20) Glucose Level 115 mg/dL (70-99) H Calcium Level 9.0 mg/dL (8.5-10.1) Total Bilirubin 0.4 mg/dL (0.2-1.0) Aspartate Amino Transferase (AST) 51 U/L (15-37) H Alanine Aminotransferase (ALT) 61 U/L (14-59) H Alkaline Phosphatase 88 U/L (46-116) Total Protein 8.9 g/dL (6.4-8.2) H Albumin 3.9 g/dL (3.4-5.0) Albumin/Globulin Ratio 0.8 (1.0-1.7) L Lipase 353 U/L (73-393) Urine Collection Type Unknown Urine Color [place] Urine Clarity Cloudy Urine pH 6.0 Urine Specific [place] 1.020 Urine Protein 100 mg/dL (NEG-TRACE) Urine Glucose (UA) Negative mg/dL (NEG) Urine Ketones (Stick) Trace mg/dL (NEG) Urine Blood Large (NEG) Urine Nitrite Negative (NEG) Urine Bilirubin Negative (NEG) Urine Urobilinogen Dipstick 0.2 mg/dL (0.2 mg/dL) Urine Leukocyte Esterase Small (NEG) Urine RBC 20-40 /HPF (0-2) Urine WBC Occ /HPF (0-4) Urine Squamous Epithelial Cells Mod /LPF Urine Bacteria 0 /HPF (0-FEW) Urine Mucus Slight /LPF Laboratory Tests 01/22/19 11:17 Laboratory Tests 01/22/19 11:17 EKG EKG [] Radiology/Procedures Radiology/Procedures [] Impressions: PROCEDURE: CT ABD PELV W/ IV CONTRST ONLY CT abdomen pelvis with contrast dated 01/22/2019. No comparison available. Clinical data indication: Right lower quadrant pain. TECHNIQUE: Contiguous axial imaging of the abdomen and pelvis performed after the administration of 60 cc Omnipaque 300. One or more of the following individualized dose reduction techniques were utilized for this examination: 1. Automated exposure control 2. Adjustment of the mA and/or kV according to patient size 3. Use of iterative reconstruction technique. FINDINGS: Limited images of lung bases are clear. Heart size mildly enlarged. No pleural or pericardial effusion. Liver is of diffuse low density compatible with fatty infiltration. No apparent mass. Biliary tree normal in caliber. Gallbladder unremarkable. Spleen is normal in size. Pancreas, adrenal glands are unremarkable. There is a 2 mm calcific stone at the right UVJ with mild proximal hydroureter and hydronephrosis. Mild inflammatory stranding in the perinephric and periureteral fat. No definite calcific stone within the substance of either kidney, although evaluation is somewhat limited due to the presence of contrast material. No left ureteral stone or left hydronephrosis. Unopacified GI tract normal in caliber and contour. No focal bowel wall thickening. The appendix is normal in caliber. No ascites or lymphadenopathy. There are nonpathologically enlarged mesenteric lymph nodes. Abdominal aorta is normal in caliber. Images of pelvis a nondistended urinary bladder. Intrauterine contraceptive device appears to be adequately positioned within the endometrial canal. No significant free fluid or pelvic lymphadenopathy. Bone windows show no acute findings. Mild multilevel spondylosis. IMPRESSION: 1. There is a 2 mm calcific stone at the right UVJ with mild obstructive uropathy. 2. Mild fatty infiltration of the liver. Electronically signed by: Andres Castro MD (01/22/2019 12:46 PM) [facility] Course & Med Decision Making Course & Med Decision Making Pertinent Labs and Imaging studies reviewed. (See chart for details) [] Dragon Disclaimer Dragon Disclaimer This electronic medical record was generated, in whole or in part, using a voice recognition dictation system. Departure Departure Impression: Primary Impression: Ureterolithiasis Disposition: 01 HOME, SELF-CARE Condition: STABLE Referrals: JULIANNA LEO MD (PCP) Patient Instructions: Kidney Stones Scripts Ketorolac Tromethamine (KETOROLAC TROMETHAMINE) 10 Mg Tablet 1 TAB PO PRN Q6HRS PRN for PAIN, #20 TAB Prov: FAUZIA ROBLEDO Jr. DO 01/22/19 Ondansetron (ONDANSETRON ODT) 4 Mg Tab.rapdis 1 TAB PO PRN Q6-8HRS PRN for NAUSEA, #15 TAB Prov: FAUZIA ROBLEDO Jr. DO 01/22/19 Oxycodone/Apap 7.5-325 (PERCOCET 7.5-325 MG TABLET ) 1 Each Tablet 1 TAB PO QIDPRN PRN for PAIN MDD 4 Tablet(s) for 3 Days, #12 TAB 0 Refills Prov: FAUZIA ROBLEDO Jr. DO 01/22/19 FAUZIA ROBLEDO Jr. DO Jan 22, 2019 13:36
[2019-01-22 14:00] VITALS: BP 170/80
== END 2019-01-22 14:06 | disposition home or self-care (01) ==
LOC: ER 09:31
DX: N13.2 Hydronephrosis with renal and ureteral calculous obstruction (principal); K76.0 Fatty (change of) liver, not elsewhere classified; I10 Essential (primary) hypertension; E03.9 Hypothyroidism, unspecified; G43.909 Migraine, unspecified, not intractable, without status migrainosus; Z88.5 Allergy status to narcotic agent; Z88.6 Allergy status to analgesic agent
CPT/HCPCS: 36415; 74177; 80053; 81001; 83690; 85025; 87086; 96361; 96374; 96375; 99285; J2270; J2405; J7030; Q9967

== ENCOUNTER → 2019-12-27 | Outpatient (CLI) | payer MEDICAID ==
[~2019-12-27] MED LIST changes: +AMLO-186 PO; -AMLO5TAB10 PO; +KETO10TA PO; +ONDA4TAB12 PO; +OXYC1TAB19 PO
--- NOTE | 2019-12-27 09:52 | KCIC ---
Examination: Ultrasound abdomen complete HISTORY: History of abnormal liver function tests COMPARISON: None available. FINDINGS: The liver length measures 18.9 cm. Moderate increased echogenicity identified in the liver likely hepatic steatosis. The gallbladder wall thickness measures 2.2 mm. The right kidney measures 12.1 x 5.3 x 4.6 cm. The left kidney measures 11.0 x 5.0 x 5.3 cm. The pancreas, aorta, IVC are not well-visualized due to bowel gas. The spleen measures 10.9 cm in length. IMPRESSION: 1. Hepatomegaly with hepatic steatosis. Electronically signed by: Judd Ceja MD (12/27/2019 9:49 AM) [id number]
== END ==
LOC: KCIC US 08:27
PROVIDERS: ATTEND Family Medicine
DX: K76.0 Fatty (change of) liver, not elsewhere classified (principal); R16.0 Hepatomegaly, not elsewhere classified; R94.5 Abnormal results of liver function studies
CPT/HCPCS: 76700

== ENCOUNTER → 2020-10-31 | Outpatient (CLI) | payer MEDICAID ==
--- NOTE | 2020-10-31 10:36 | KCIC ---
EXAM: Left foot, 3 views; left ankle, 3 views. HISTORY: Inversion injury. Fifth digit pain. COMPARISON: None. FINDINGS: 3 views of the left foot and ankle are obtained. There is no fracture, dislocation or sublu xation. There is a small plantar spur. There is enthesopathy at the Achilles tendon insertion. There is ankle soft tissue swelling. The ankle mortise is intact. There is no osteochondral lesion. IMPRESSION: 1. Left ankle soft tissue swelling. 2. Small plantar spur. Electronically signed by: Mali Meredith MD (10/31/2020 10:34 AM) [facility]
== END ==
LOC: KCIC 09:39
PROVIDERS: ATTEND Family Medicine
DX: M77.32 Calcaneal spur, left foot (principal); M25.472 Effusion, left ankle; M76.62 Achilles tendinitis, left leg
CPT/HCPCS: 73610; 73630

== ENCOUNTER 2021-03-22 15:53 | Emergency (ER) | payer MEDICAID ==
[~2021-03-22] VITALS: Ht 149.9 cm; Wt 126.8 kg
[2021-03-22] MEDS ORDERED: IBUPROFEN 400 MG TABLET. PO ONE (16:30)
--- NOTE | 2021-03-22 16:34 | RAD ---
EXAM: Left tibia and fibula, 2 views; left forearm, 2 views; left wrist, 3 views; left knee, 3 views. HISTORY: Fall. COMPARISON: None. FINDINGS: Left knee: 3 views of the left knee are obtained. There is no fracture, dislocation or subluxation. T here is no joint effusion. Left tibia and fibula: 2 views of the tibia and fibula are obtained. There is no fracture, dislocatio n or subluxation. The ankle mortise is intact. There is a small plantar spur. There is enthesopathy a t the Achilles insertion. Left wrist and forearm: 3 views of the left wrist and 2 views of the lentiform are obtained. There is no fracture, dislocation or subluxation. IMPRESSION: No acute osseous finding. Electronically signed by: Mali Meredith MD (03/22/2021 4:32 PM) [id number]
--- NOTE | 2021-03-22 16:35 | PHYS DOC ---
Past Medical History Past Medical History: Hypertension, Hypothyroid, Migraines, Other Additional Past Medical Histor: BRAIN STEM TUMOR DIAGNOSED 2016 Past Surgical History: No Surgical History Additional Past Surgical Histo: tumor removal - brain Smoking Status: Never Smoker Alcohol Use: None Drug Use: None General Adult EDM: Chief Complaint: LOWER EXT PAIN HPI: HPI: Patient is a 40-year-old female who presents to the emergency department with left wrist and forearm pain as well as left lower leg pain that occurred after she tripped and fell down 3 stairs at 1500. Patient denies any head injury, loss of consciousness, neck or back pain. She reports her pain is 10 out of 10. She reports that she is unable to bear weight or ambulate since. No treatment prior to arrival. Review of Systems: Review of Systems: HENT: See HPI Musculoskeletal: See HPI Integument: See HPI Neurologic: See HPI Heart Score: C/O Chest Pain: N/A Risk Factors: Risk Factors: DM, Current or recent (<one month) smoker, HTN, HLP, family history of CAD, obesity. Risk Scores: Score 0 - 3: 2.5% MACE over next 6 weeks - Discharge Home Score 4 - 6: 20.3% MACE over next 6 weeks - Admit for Clinical Observation Score 7 - 10: 72.7% MACE over next 6 weeks - Early Invasive Strategies Current Medications: Current Medications Medications (Trade) Dose Ordered Sig/Landry Start Time Stop Time Status Last Admin Dose Admin Ibuprofen (Motrin) 800 mg 1X ONCE 03/22/21 16:30 03/22/21 16:31 DC 03/22/21 16:30 800 MG Allergies: Allergies: Allergies Coded Allergies Type Severity Reaction Last Updated Verified codeine Allergy Severe heart racing 11/27/16 Yes acetaminophen Allergy Intermediate heart racing 11/27/16 Yes hydrocodone Allergy Intermediate heart racing 03/22/21 Yes Physical Exam: PE: Constitutional: Well developed, well nourished, no acute distress, non-toxic appearance. [] HENT: Normocephalic, atraumatic, bilateral external ears normal, oropharynx moist, no oral exudates, nose normal. [] Eyes: PERRL, EOMI, conjunctiva normal, no discharge. [] Neck: Normal range of motion, no tenderness, supple, no stridor. [] Cardiovascular:Heart rate regular rhythm, no murmur [] Lungs & Thorax: Bilateral breath sounds clear to auscultation [] Abdomen: Bowel sounds normal, soft, no tenderness, no masses, no pulsatile mas ses. [] Skin: Warm, dry, no erythema, no rash. [] Back: Normal range of motion Extremities: No tenderness, no cyanosis, no clubbing, ROM intact, no edema. [] Left wrist and forearm: Abrasion noted to ulnar aspect of left forearm, mild swelling noted, no obvious deformity, no crepitus, range of motion intact, neuro intact. Left lower leg: Swelling, abrasion and ecchymosis noted to the anterior aspect of left lower leg, possible deformity, range of motion intact to ankle and foot, neuro intact, pain with palpation to area Neurologic: Alert and oriented X 3, normal motor function, normal sensory function, no focal deficits noted. [] Psychologic: Affect normal, judgement normal, mood normal. [] Current Patient Data: Vital Signs: Vital Signs Date Time Temp Pulse Resp B/P (MAP) Pulse Ox O2 Delivery O2 Flow Rate FiO2 03/22/21 15:54 98.3 121 16 171/84 (113) 98 98.3 EKG: EKG: [] Radiology/Procedures: Radiology/Procedures: []PROCEDURE: WRIST 3V LEFT EXAM: Left tibia and fibula, 2 views; left forearm, 2 views; left wrist, 3 v iews; left knee, 3 views. HISTORY: Fall. COMPARISON: None. FINDINGS: Left knee: 3 views of the left knee are obtained. There is no fracture, dislocation or subluxation. There is no joint effusion. Left tibia and fibula: 2 views of the tibia and fibula are obtained. There is no fracture, dislocation or subluxation. The ankle mortise is intact. There is a small plantar spur. There is enthesopathy at the Achilles insertion. Left wrist and forearm: 3 views of the left wrist and 2 views of the lentiform a re obtained. There is no fracture, dislocation or subluxation. IMPRESSION: No acute osseous finding. Electronically signed by: Agustin Perez MD (03/22/2021 4:32 PM) [id number] DICTATED and SIGNED BY: AGUSTIN PEREZ MD DATE: 03/22/21 [id number] 0 Course & Med Decision Making: Course & Med Decision Making Pertinent Labs and Imaging studies reviewed. (See chart for details) [] Patient presents to the emergency department for left wrist/forearm and left lower leg pain after falling down 3 stairs. Imaging was performed of this area that showed no acute findings. Patient's pain was treated and she was provided with an ice pack. Patient's leg was placed in an Edis wrap and she was given a prescription for crutches. Patient educated on the rice protocol. I discussed with patient all findings and diagnostic testing as well as the need to follow- up with PCP for further evaluation and treatment or return to the ER if any new or worsening symptoms. Strict return precautions were also discussed at length. Patient voiced understanding and agreement with the plan. Patient is hemodynamically stable at the time of disposition. Dragon Disclaimer: Dragheri Disclaimer: This electronic medical record was generated, in whole or in part, using a voice recognition dictation system. Departure Departure Impression: Primary Impression: Fall Qualified Codes: W19.XXXA - Unspecified fall, initial encounter Disposition: HOME / SELF CARE / HOMELESS Condition: GOOD Referrals: JULIANNA LEO MD (PCP) EDWIGE KIDD II, MD Patient Instructions: Crutch Use, RICE - Routine Care for Injuries Additional Instructions: You were seen in the emergency department following a fall for left wrist/forearm and left lower leg pain. The x-rays did not show any acute findings. This will likely improve over time. Your symptoms may be improved by something called the rice protocol. This is rest, ice, compression, elevation. Please follow-up when doing intense exercises that may make the pain worse. Sometimes gentle stretching can provide relief, but be careful to injury. It is important to perform gentle range of motion exercises to prevent stiff joints and chronic pain. Use ice packs over the affected areas to help decrease your pain. For the first 24 hours you can apply ice 20 minutes on 20 minutes off for 4 times per day. Sometimes compression such as the use of an Edis wrap can help with the swelling. You may also elevate the affected area to help with the swelling. You can take Tylenol and/or ibuprofen for any pain at home. You were given a prescription for crutches, please use this at home. If you continue to have pain, you may need to follow-up with your primary care provider and have a repeat x-ray. You may also need to follow-up with an orthopedic doctor if your pain continues and was provided for you on this discharge paper. Return to the emergency department if you develop worsening of your pain, decreased range of motion, decreased sensation in your extremity, inability to bear weight or any new or worsening concerns. CORNELIO GRIFFITH APRN Mar 22, 2021 16:35
[2021-03-22 17:06] VITALS: BP 172/85
== END 2021-03-22 17:07 | disposition home or self-care (01) ==
LOC: ER 15:53
DX: S80.12XA Contusion of left lower leg, initial encounter (principal); S50.812A Abrasion of left forearm, initial encounter; S60.812A Abrasion of left wrist, initial encounter; I10 Essential (primary) hypertension; E03.9 Hypothyroidism, unspecified; G43.909 Migraine, unspecified, not intractable, without status migrainosus; W10.8XXA Fall (on) (from) other stairs and steps, initial encounter; Z88.5 Allergy status to narcotic agent; Z88.6 Allergy status to analgesic agent; Y93.89 Activity, other specified; Y92.89 Other specified places as the place of occurrence of the external cause; Y99.8 Other external cause status
CPT/HCPCS: 73090; 73120; 73562; 73590; 99284; A6450

== ENCOUNTER → 2021-05-08 | Outpatient (CLI) | payer MEDICAID ==
--- NOTE | 2021-05-08 13:38 | KCIC ---
CT of left lower extremity dated 05/08/2021. COMPARISON: None. INDICATION: Pain after fall TECHNIQUE: Continues axial imaging of the left lower extremity performed with thin cut coronal and sagittal abrahan nstruction. One or more of the following individualized dose reduction techniques were utilized for this examinat ion: 1. Automated exposure control 2. Adjustment of the mA and/or kV according to patient size 3. Use of iterative reconstruction technique FINDINGS: The tibia and fibular intact. No displaced fracture. No periostitis or bone destruction. No apparent abnormality at the knee joint or ankle joint. There is a bilobed curvilinear fluid collection within the subcutaneous tissues of the anterior thigh that measures approximately 7.3 x 2.2 x 12.8 cm transverse, AP and craniocaudal dimension. No soft t issue gas. No periostitis or bone destruction. Visualized soft tissue structures otherwise unremarkab le. IMPRESSION: 1. There is a curvilinear fluid collection within the anterior calf soft tissues, nonspecific. This c ould be related to liquefying hematoma. Abscess considered less likely. Correlate with physical exam findings. 2. No acute bony abnormality. Electronically signed by: Andres Castro MD (05/08/2021 1:35 PM) [id number]
== END ==
LOC: KCIC CT 12:25
PROVIDERS: ATTEND Family Medicine
DX: M89.8X6 Other specified disorders of bone, lower leg (principal); M79.605 Pain in left leg
CPT/HCPCS: 73700